=== PATIENT | female | born 1955 | race Caucasian/White ===

== ENCOUNTER → 2016-06-24 | Outpatient (CLI) | payer OTHER ==
[~2016-06-24] MED LIST: ALBUTEROL0.83 MG/ML IH; ANTIVERT 25MG25 MG PO; ATIVAN 1MG T1 MG/TAB PO; ATROVENT I0.2 MG/1 M IH; BREO IH; COMBIRESP IH; DECADRON 4MG TAB4 MG PO; DOXYCYCLINE 10100 MG PO; IPRATROPIUM BROM3 M1 IH; MEDROL 4MG DOSPA4 MG PO; PHENERGAN 25 TA25 MG PO; PREDNISONE10 MG; PREDNISONE20 MG PO; PROAIR HFA0.09 MG/AC IH; QVAR0.08 MG/AC IH; RT ADVAIR 228 DISKUS IH; SINGULAIR 110 MG/TAB PO; SPIRIVA RE2.5 MCG/Ac IH; TUDORZA IH; TUSS PO; VENTOLIN0.09 MG IH
== END ==
LOC: COL.RAD 10:11
DX: J44.9 Chronic obstructive pulmonary disease, unspecified (principal); R91.8 Other nonspecific abnormal finding of lung field
CPT/HCPCS: Q9967

== ENCOUNTER → 2016-08-12 | Outpatient (CLI) | payer OTHER | LOC: ZLAB.FHCC 13:47 → COL.LAB 13:47 | DX: J45.998 Other asthma (principal); J44.9 Chronic obstructive pulmonary disease, unspecified; R06.02 Shortness of breath ==

== ENCOUNTER → 2017-02-09 | Outpatient (CLI) | payer OTHER ==
[2017-02-09 17:04] LABS: BASO % 0.6 % (0.0-2.0); EOS # 0.2 (0.0-0.7); EOS % 5.6 % (0-4.0); GRAN % 56.4 % (42.2-75.2); LYMPH % 27.5 % (20.0-51.0); MEAN CELL VOLUME 94 fl (80.0-100.0); MEAN CORPUSCULAR HEMOGLOBIN 31 pg (27.0-31.0); MEAN CORPUSCULAR HGB CONC 33 g/dl (33.0-37.0); MEAN PLATELET VOLUME 10.1 fl (7.4-10.4); MONO # 0.3 (0.1-0.6); MONO % 9.6 % (1.7-9.3); PLATELET COUNT 158 K/mm3 (130-400); RED BLOOD COUNT 4.16 M/mm3 (4.10-5.30); REDCELL DISTRIBUTION WIDTH-CV 12.5 % (11.5-14.5); WHITE BLOOD COUNT 3.6 K/mm3 (4.8-10.8)
[2017-02-09 17:27] LABS: ADJUSTED CALCIUM 9.1 mg/dL (8.4-10.2); BILIRUBIN,TOTAL 0.7 mg/dL (0.0-1.0); CALCIUM 9.1 mg/dL (8.4-10.2); CREATININE, serum 0.82 mg/dL (0.52-1.25); TOTAL PROTEIN 6.9 gm/dL (6.4-8.2)
[2017-02-09 17:57] LABS: THYROID STIMULATING HORMONE 0.745 uIU/mL (0.465-4.680)
== END ==
LOC: COL.LAB 02-08 13:57
DX: R06.02 Shortness of breath (principal); R53.83 Other fatigue

== ENCOUNTER 2017-02-17 04:09 | Emergency (ER) | payer OTHER ==
[~2017-02-17] VITALS: Ht 152.4 cm; Wt 48.6 kg
[~2017-02-17 04:09] MED LIST changes: -ANTIVERT 25MG25 MG PO; -PREDNISONE10 MG; -TUSS PO
[2017-02-17 04:10] VITALS: TEMP 97.1
[2017-02-17] MEDS ORDERED: ANTIVERT 25MG25 MG PO (04:37)
[2017-02-17] MEDS ORDERED: DOXYCYCLINE 10100 MG PO (04:48)
[2017-02-17] MEDS ORDERED: PREDNISONE10 MG (04:50)
[2017-02-17] MEDS ORDERED: TUSS PO (05:43)
[2017-02-17 05:53] VITALS: BP 146/87; PULSE 111
== END 2017-02-17 05:55 | disposition home or self-care (01) ==
LOC: COL.ER 04:09
DX: J44.1 Chronic obstructive pulmonary disease with (acute) exacerbation (principal); R42 Dizziness and giddiness

== ENCOUNTER → 2017-06-21 | Outpatient (CLI) | payer SELFPAY ==
[~2017-06-21] MED LIST changes: +ANTIVERT 25MG25 MG PO; +MAG-OX 400400 MG/TAB PO; +PREDNISONE10 MG; +TUSS PO
== END ==
LOC: COL.RAD 14:50
DX: J98.9 Respiratory disorder, unspecified (principal); Z87.09 Personal history of other diseases of the respiratory system

== ENCOUNTER → 2017-07-19 | Outpatient (CLI) | payer SELFPAY ==
[2017-07-19 17:43] LABS: BASO % 0.3 % (0.0-2.0); EOS # 0.1 (0.0-0.7); EOS % 2.3 % (0-4.0); GRAN # 1.6 (1.4-6.5); GRAN % 53.8 % (42.2-75.2); HEMATOCRIT 40.8 % (37.0-47.0); HEMOGLOBIN 13.7 g/dl (12.5-16.0); LYMPH # 0.9 (1.2-3.4); LYMPH % 28.5 % (20.0-51.0); MEAN CELL VOLUME 94 fl (80.0-100.0); MEAN CORPUSCULAR HEMOGLOBIN 32 pg (27.0-31.0); MEAN CORPUSCULAR HGB CONC 34 g/dl (33.0-37.0); MEAN PLATELET VOLUME 9.7 fl (7.4-10.4); MONO # 0.5 (0.1-0.6); MONO % 15.1 % (1.7-9.3); PLATELET COUNT 189 K/mm3 (130-400); RED BLOOD COUNT 4.32 M/mm3 (4.10-5.30)
== END ==
LOC: COL.RAD 16:58
DX: J18.9 Pneumonia, unspecified organism (principal); J98.4 Other disorders of lung

== ENCOUNTER 2018-06-19 13:27 | Emergency (ER) | payer BC ==
[~2018-06-19] VITALS: Ht 152.4 cm; Wt 52.7 kg
[2018-06-19 13:32] VITALS: TEMP 98.4
[2018-06-19 16:58] LABS: BASO % 0.2 % (0.0-2.0); EOS # 0.1 (0.0-0.7); EOS % 2.1 % (0-4.0); GRAN # 3.9 (1.4-6.5); GRAN % 62.6 % (42.2-75.2); HEMATOCRIT 43.4 % (37.0-47.0); HEMOGLOBIN 14.4 g/dl (12.5-16.0); LYMPH # 1.5 (1.2-3.4); MEAN CELL VOLUME 96 fl (80.0-100.0); MEAN CORPUSCULAR HEMOGLOBIN 32 pg (27.0-31.0); MEAN CORPUSCULAR HGB CONC 33 g/dl (33.0-37.0); MEAN PLATELET VOLUME 9.6 fl (7.4-10.4); MONO # 0.7 (0.1-0.6); MONO % 10.8 % (1.7-9.3); PLATELET COUNT 245 K/mm3 (130-400); RED BLOOD COUNT 4.54 M/mm3 (4.10-5.30); REDCELL DISTRIBUTION WIDTH-CV 12.7 % (11.5-14.5)
[2018-06-19 17:04] LABS: PROTHROMBIN TIME 11.7 SECONDS (9.7-12.8)
[2018-06-19 17:13] LABS: ALANINE AMINOTRANSFERASE 21 U/L (9-52); ALKALINE PHOSPHATASE 71 U/L (50-136); ANION GAP 6 mmol/L (7-16); AST,SGOT 25 U/L (15-37); BILIRUBIN,TOTAL 0.7 mg/dL (0.0-1.0); BLOOD UREA NITROGEN 22 mg/dL (7-17); CALCIUM 9.2 mg/dL (8.4-10.2); CARBON DIOXIDE 31 mmol/L (22-30); CHLORIDE 104 mmol/L (98-107); GLUCOSE 104 mg/dL (74-106); POTASSIUM 3.5 mmol/L (3.4-5.0); SODIUM 141 mmol/L (137-145); TOTAL PROTEIN 7.1 gm/dL (6.4-8.2)
[2018-06-19 17:25] LABS: TROPONIN-I < 0.012 ng/mL (0.000-0.034)
[2018-06-19] MEDS ORDERED: ALBUTEROL0.83 MG/ML IH (18:13)
[2018-06-19 20:55] VITALS: BP 147/85; PULSE 96
== END 2018-06-19 20:55 | disposition short-term general hospital (02) ==
LOC: COL.ER 13:27
PROVIDERS: Emergency Medicine
DX: J44.1 Chronic obstructive pulmonary disease with (acute) exacerbation (principal); Z90.710 Acquired absence of both cervix and uterus; Z98.890 Other specified postprocedural states; Z87.891 Personal history of nicotine dependence
CPT/HCPCS: A4216; J0696; J2930; J2997; J7030

== ENCOUNTER 2018-07-12 07:11 | Outpatient (CLI) | payer BC ==
[~2018-07-12] VITALS: Ht 152.4 cm; Wt 55.2 kg
[2018-07-12] VITALS (17 sets, daily range): BP systolic 110–172; BP diastolic 75–114; PULSE 76–93
[~2018-07-12 07:11] MED LIST changes: +ASPIRIN 32325 MG/TAB PO; +DALIRESP500 MCG PO; +LIPITOR 40MG TA40 MG PO; +NEUTROGENA T/G132 M1; +TRELEGY ELLIPT1 EACH IH; +XANAX .25M0.25 MG/TA PO
--- NOTE | 2018-07-12 08:45 | NUR ---
pt to ct per ambulation. Placed on ct table in prone position. O2 on at 2l/nc. Monitors applied.
--- NOTE | 2018-07-12 09:15 | NUR ---
Specimen obtained by Dr Fields and placed in formalin. Specimen labeled.
--- NOTE | 2018-07-12 11:33 | NUR ---
Discharge instructions given to pt.Pt verbalizes understanding.INT removed,catheter tip intact.Pt escortedout via wheelchair by this nurse.
== END 2018-07-12 11:35 | disposition home or self-care (01) ==
LOC: COL.RAD 07:11
DX: R91.1 Solitary pulmonary nodule (principal)
CPT/HCPCS: J2250; J3010

== ENCOUNTER → 2018-08-15 | Outpatient (CLI) | payer BC | LOC: COL.PUL 12:57 | DX: J44.9 Chronic obstructive pulmonary disease, unspecified (principal) ==

== ENCOUNTER → 2018-09-15 | Outpatient (CLI) | payer BC ==
[2018-09-15 07:38] LABS: ARTERIAL BLD GAS O2 SATURATION 95.6 % (92-100); ARTERIAL BLD GAS TCO2 CT 23.9; ARTERIAL BLOOD GAS BASE EXCESS -1.7 (-2-2); ARTERIAL BLOOD GAS HCO3 22.7 meq/L (22-26); ARTERIAL BLOOD GAS PCO2 37.8 mmHg (35-45); ARTERIAL BLOOD GAS PO2 80.1 mmHg (80-100)
== END ==
LOC: COL.PUL 07:04
PROVIDERS: Internal Medicine Pulmonary Disease
DX: J44.9 Chronic obstructive pulmonary disease, unspecified (principal)

== ENCOUNTER → 2018-10-02 | Outpatient (CLI) | payer BC | LOC: COL.PUL 07:16 | DX: J44.9 Chronic obstructive pulmonary disease, unspecified (principal); Z87.891 Personal history of nicotine dependence ==

== ENCOUNTER 2019-01-09 08:37 | Day surgery (SDC) | payer BC ==
[~2019-01-09] VITALS: Ht 152.5 cm; Wt 58.1 kg
[2019-01-09] VITALS (11 sets, daily range): BP systolic 99–150; BP diastolic 64–91; PULSE 64–83; TEMP 97.7
[2019-01-09] MEDS ORDERED: ZYRTEC 10MG10 MG PO (09:39)
[2019-01-09] MEDS ORDERED: LASIX 20MG TABL20 MG PO (09:40)
[2019-01-09 09:42] LABS: HEMATOCRIT 37.7 % (37.0-47.0); HEMOGLOBIN 12.4 g/dl (12.5-16.0); MEAN CELL VOLUME 95 fl (80.0-100.0); MEAN CORPUSCULAR HEMOGLOBIN 31 pg (27.0-31.0); MEAN CORPUSCULAR HGB CONC 33 g/dl (33.0-37.0); MEAN PLATELET VOLUME 10.2 fl (7.4-10.4); PLATELET COUNT 192 K/mm3 (130-400); RED BLOOD COUNT 3.97 M/mm3 (4.10-5.30); REDCELL DISTRIBUTION WIDTH-CV 12.1 % (11.5-14.5)
[2019-01-09] MEDS ORDERED: XOPENEX HF0.045 MG/A IH (09:42)
[2019-01-09] MEDS ORDERED: TOPROL XL 25MG25 MG PO (09:43)
[2019-01-09] MEDS ORDERED: PROAIR HFA0.09 MG/AC IH (09:43)
[2019-01-09 09:47] LABS: PROTHROMBIN TIME 11.1 SECONDS (9.7-12.8)
[2019-01-09 09:52] LABS: CALCIUM 9.4 mg/dL (8.4-10.2); CREATININE, serum 1.05 (0.52-1.25); POTASSIUM 3.7 mmol/L (3.4-5.0)
--- NOTE | 2019-01-09 10:44 | NUR ---
ALL MEDICATIONS GIVEN VORB WITH MD. SEE MERGE FOR ALL MEDICATION ADMIN TIMES. SEE MERGE FOR ALL RASS ASSESSMENTS DURING AND POST PROCEDURE.
[2019-01-09] MEDS ORDERED: CARDIZEM CD 18180 MG PO (12:01)
--- NOTE | 2019-01-09 12:13 | NUR ---
Patient transported to room 11 at this time. Patient hooked back up to monitoring equipment, VS stable. Patient denies pain at this time. Bedside report given to CLAUDIA Echols. Visualized right groin site with RN. Site is clean, dry, and intact. No oozing or hematoma noted at this time. Site is soft and nontender. Post tib pulses +1 bilaterally, pedal pulses +2 bilaterally. Discussed importance of bedrest and keeping head down, leg flat with patient and family at bedside. All questions and concerns addressed. Call light within reach, bed in locked and lowest position.
--- NOTE | 2019-01-09 12:15 | NUR ---
PT TO EU 11 VIA BED FROM SIGN PAINTER APPRENTICE. PT IS AWAKE, WITH PT, CALL LIGHT IN REACH. REVIEWED BED REST ACTIVITY WITH PT, STATES WOULD LIKE TO SLEEP
--- NOTE | 2019-01-09 13:00 | NUR ---
PT DECLINES FLUIDS AT THIS TIME, STATES SITE IS VERY SORE, DOZES IN BED
--- NOTE | 2019-01-09 14:00 | NUR ---
pt on bedpan, unable to go at this time, takes sips of water
--- NOTE | 2019-01-09 15:00 | NUR ---
reviewed discharge inst. with pt and friend, reviewed activity, precautions, new RX to clam picker and d'cd metoprolol per , with verbal understanding. Appt given to pt also
--- NOTE | 2019-01-09 16:00 | NUR ---
pt had to urinate and have BM, sat on side of bed, walked to toilet, tolerated well, site unchanged, pt was able to void and had BM, up in room now, no c/o IV d'cd intact, pt dressed.
--- NOTE | 2019-01-09 16:29 | NUR ---
pt discharged via w/c to car, has all education and discharge inst. with her
== END 2019-01-09 16:30 | disposition home or self-care (01) ==
LOC: COL.CAR 08:37
PROVIDERS: Internal Medicine Cardiovascular Disease
DX: I20.9 Angina pectoris, unspecified (principal); I34.2 Nonrheumatic mitral (valve) stenosis; I00 Rheumatic fever without heart involvement; F41.9 Anxiety disorder, unspecified; I47.1 Supraventricular tachycardia; J44.1 Chronic obstructive pulmonary disease with (acute) exacerbation; Z86.73 Personal history of transient ischemic attack (TIA), and cerebral infarction without residual deficits; Z90.710 Acquired absence of both cervix and uterus; Z79.82 Long term (current) use of aspirin; Z79.51 Long term (current) use of inhaled steroids; Z87.891 Personal history of nicotine dependence
CPT/HCPCS: C1760; C1769; C1894; J1644; J2250; J3010; Q9967

== ENCOUNTER 2019-01-09 17:04 | Emergency (ER) | payer BC ==
[~2019-01-09] VITALS: Ht 152.4 cm; Wt 57.7 kg
[~2019-01-09 17:04] MED LIST changes: +CARDIZEM CD 18180 MG PO; +LASIX 20MG TABL20 MG PO; +TOPROL XL 25MG25 MG PO; +XOPENEX HF0.045 MG/A IH; +ZYRTEC 10MG10 MG PO
[2019-01-09 17:13] VITALS: TEMP 96
[2019-01-09 17:47] LABS: BASO % 0.2 % (0.0-2.0); EOS # 0.2 (0.0-0.7); EOS % 2.6 % (0-4.0); GRAN # 4.7 (1.4-6.5); GRAN % 71.7 % (42.2-75.2); HEMOGLOBIN 11.5 g/dl (12.5-16.0); LYMPH % 14.9 % (20.0-51.0); MEAN CELL VOLUME 96 fl (80.0-100.0); MEAN CORPUSCULAR HEMOGLOBIN 31 pg (27.0-31.0); MEAN CORPUSCULAR HGB CONC 33 g/dl (33.0-37.0); MONO # 0.7 (0.1-0.6); MONO % 10.4 % (1.7-9.3); PLATELET COUNT 186 K/mm3 (130-400); RED BLOOD COUNT 3.68 M/mm3 (4.10-5.30); REDCELL DISTRIBUTION WIDTH-CV 12.1 % (11.5-14.5)
[2019-01-09 17:52] LABS: HEMATOCRIT 35.2 % (37.0-47.0)
[2019-01-09 17:57] LABS: ALBUMIN 3.3 gm/dL (3.5-5.0); BILIRUBIN,TOTAL 0.5 mg/dL (0.0-1.0); CALCIUM 8.4 mg/dL (8.4-10.2)
[2019-01-09 18:15] LABS: TROPONIN-I 0.04 ng/mL (0.000-0.035)
[2019-01-09 21:00] VITALS: BP 113/72; PULSE 88
== END 2019-01-09 21:02 | disposition home or self-care (01) ==
LOC: COL.ER 17:04
PROVIDERS: Emergency Medicine
DX: I95.1 Orthostatic hypotension (principal); J44.9 Chronic obstructive pulmonary disease, unspecified; Z86.73 Personal history of transient ischemic attack (TIA), and cerebral infarction without residual deficits; Z87.891 Personal history of nicotine dependence
CPT/HCPCS: J2405

== ENCOUNTER 2020-04-26 20:41 | Inpatient (IN) | payer MEDICARE, BC ==
[~2020-04-26] VITALS: Ht 152.4 cm; Wt 55.7 kg
[2020-04-26 21:39] LABS: EOS % 0.1 % (0-4.0); GRAN # 6.9 (1.4-6.5); GRAN % 84.7 % (42.2-75.2); HEMATOCRIT 40.1 % (37.0-47.0); HEMOGLOBIN 13.2 g/dl (12.5-16.0); LYMPH # 0.6 (1.2-3.4); LYMPH % 6.9 % (20.0-51.0); MEAN CELL VOLUME 95 fl (80.0-100.0); MEAN CORPUSCULAR HEMOGLOBIN 31 pg (27.0-31.0); MEAN CORPUSCULAR HGB CONC 33 g/dl (33.0-37.0); MEAN PLATELET VOLUME 10.1 fl (7.4-10.4); MONO # 0.7 (0.1-0.6); MONO % 8.1 % (1.7-9.3); PLATELET COUNT 235 K/mm3 (130-400); RED BLOOD COUNT 4.22 M/mm3 (4.10-5.30); REDCELL DISTRIBUTION WIDTH-CV 13.7 % (11.5-14.5)
[2020-04-26 21:50] LABS: ALANINE AMINOTRANSFERASE 18 U/L (4-34); ALBUMIN 4.3 gm/dL (3.5-5.0); ALKALINE PHOSPHATASE 102 U/L (50-136); ANION GAP 9 mmol/L (7-16); AST,SGOT 27 U/L (15-37); BILIRUBIN,TOTAL 0.3 mg/dL (0.0-1.0); BLOOD UREA NITROGEN 20 mg/dL (7-17); C-REACTIVE PROTEIN 1.1 mg/dL (0.0-0.9); CALCIUM 9.2 mg/dL (8.4-10.2); CARBON DIOXIDE 27 mmol/L (22-30); CHLORIDE 104 mmol/L (98-107); CREATININE, serum 0.93 (0.52-1.25); GLUCOSE 121 mg/dL (74-106); POTASSIUM 4.2 mmol/L (3.4-5.0); SODIUM 141 mmol/L (137-145); TOTAL PROTEIN 7.5 gm/dL (6.4-8.2)
[2020-04-26] MEDS ORDERED: LOMOTIL 0.025 M1 TAB PO (21:50)
[2020-04-26] MEDS ORDERED: DALIRESP500 MCG PO (21:51)
[2020-04-26] MEDS ORDERED: TRELEGY ELLIPT1 EACH IH (21:52)
[2020-04-26] MEDS ORDERED: CARDIZEM CD 24240 MG PO (21:53)
[2020-04-26] MEDS ORDERED: LASIX 20MG TABL20 MG PO (21:54)
[2020-04-26] MEDS ORDERED: SINGULAIR 110 MG/TAB PO (21:54)
[2020-04-26] MEDS ORDERED: PEPCID 20MG TAB20 MG PO (21:55)
[2020-04-26] MEDS ORDERED: LIPITOR 40MG TA40 MG PO (21:56)
[2020-04-26] MEDS ORDERED: PREDNISONE20 MG PO (21:57)
[2020-04-26] MEDS ORDERED: ASPIRIN 32325 MG/TAB PO (21:58)
[2020-04-26 21:59] LABS: TROPONIN-I < 0.012 ng/mL (0.000-0.035)
[2020-04-26] MEDS ORDERED: ALBUTEROL0.83 MG/ML IH (21:59)
[2020-04-26] MEDS ORDERED: ATROVENT I0.2 MG/1 M IH (22:00)
[2020-04-26] MEDS ORDERED: BONINE25 MG PO (22:01)
[2020-04-26] MEDS ORDERED: PHARMASSURE ZIN50 MG PO (22:03)
[2020-04-26] MEDS ORDERED: D3-5050000 IU PO (22:04)
[2020-04-26] MEDS ORDERED: VITAMINC500CH (22:04)
[2020-04-27] VITALS (7 sets, daily range): BP systolic 95–147; BP diastolic 57–91; PULSE 67–101; TEMP 96.9–98.1
--- NOTE | 2020-04-27 01:29 | NUR ---
PT A/O X3, IN BED WITH HOB ELEVATED TO 60 DEGREES, DENIES PAIN OR DISCOMFORT. HAS O2 ON AT 2L/NC HOME DOSE AT [facility]. PT WAS BROUGHT FROM [facility] [place] VIA PRIVATE VEHICLE ACCOMPANIED BY PT'S BOYFRIEND. PT ADVISES THAT SHE FELT FINE THE DAY BEFORE BUT FELT REALLY SICK ON 04/26 AND THROUGH SHE SHOULD COME HERE BECAUSE SHE IS A PT OF DR. MORENO PULMONALOGIST. PT HAS NO NEEDS AT THIS TIME AND HAS CALL LIGHT WITHIN REACH.
--- NOTE | 2020-04-27 02:36 | NUR ---
PT IN ROOM WITH HOB ELEVATED AND RESTING. NO C/O PAIN OR DISCOMFORT, AND NO NEEDS AT THIS TIME. CALL LIGHT WITHIN REACH.
--- NOTE | 2020-04-27 07:25 | NUR ---
PT HAD NO ISSUES DURING THE NIGHT, CALL LIGHT WITHIN REACH.
--- NOTE | 2020-04-27 10:05 | NUR ---
PATIENT SHIFT ASSESSMENT COMPLETE. AM MEDICATIONS GIVEN. PATIENT REPORTS CHEST DISCOMFORT AND TIGHTNESS WITH WORSENING COUGH, AND IS REQUESTING COUGH MEDICATION. CALL LIGHT WITHIN REACH. O2 IN PLACE. TACHYCARDIA NOTED, OTHERWISE VSS. NOTIFIED OF COUGH AND PATIENT WANTING COUGH MEDICATION. ROBITUSSIN AC 10 MG PO Q4H PRN VERBAL ORDER REPEAT BACK FROM TO THIS NURSE.
--- NOTE | 2020-04-27 12:16 | NUR ---
PATIENT REPORTING PAIN A 4/10 IN THE CHEST AND DESCRIBES IT TIGHTNESS. PATIENT GIVEN PRN COUGH MEDICATION AND MECLIZINE AT THIS TIME. PATIENT WAS UP IN THE ROOM WITHOUT HER OXYGEN ON WHEN THIS NURSE ENTERED THE ROOM. PATIENT EDUCATED ON THE IMPORTANCE OF KEEPING HER OXYGEN ON AT ALL TIMES, ESPECIALLY WITH AMBULATION. LABORED BREATHING NOTED. VITAL SIGNS OBTAINED AT THIS TIME. IV TO INT PER ORDERS. CALL LIGHT WITHIN REACH. WILL CONTINUE TO MONITOR.
--- NOTE | 2020-04-27 14:43 | NUR ---
SW attempted to contact patient at room number independently, and with assistance of medical staff, and by her personal number [phone]. There was no answer at any of the numbers.
--- NOTE | 2020-04-27 19:00 | NUR ---
PATIENTS CHEST TIGHTNESS WELL CONTROLLED WITH ROBITUSSIN AND PATIENT WAS ABLE TO GET SOME REST THIS AFTERNOON. WILL REPORT OFF TO ONCOMING NURSE.
--- NOTE | 2020-04-27 20:00 | NUR ---
Assessment complete. Patient complains of pain in her chest, due to excessive coughing. Robitussin administered by day shift nurse. She is tolerating 2 liters of 02 well. Gait is steady as she walks to the restroom. No new concerns, will continue to monitor.
[2020-04-28 04:00] VITALS: BP 158/92; PULSE 98; TEMP 96.4
--- NOTE | 2020-04-28 04:52 | NUR ---
Patient has had a restful, uneventful night. No new concerns, will continue to monitor.
[2020-04-28 09:00] VITALS: BP 150/92; PULSE 92; TEMP 96.7
[2020-04-28 10:01] LABS: BASO % 0.1 % (0.0-2.0); GRAN # 7.3 (1.4-6.5); GRAN % 84.5 % (42.2-75.2); HEMATOCRIT 39.6 % (37.0-47.0); HEMOGLOBIN 13.1 g/dl (12.5-16.0); LYMPH # 0.7 (1.2-3.4); LYMPH % 7.9 % (20.0-51.0); MEAN CELL VOLUME 94 fl (80.0-100.0); MEAN CORPUSCULAR HEMOGLOBIN 31 pg (27.0-31.0); MEAN CORPUSCULAR HGB CONC 33 g/dl (33.0-37.0); MEAN PLATELET VOLUME 11.1 fl (7.4-10.4); MONO # 0.6 (0.1-0.6); MONO % 7.2 % (1.7-9.3); PLATELET COUNT 234 K/mm3 (130-400); RED BLOOD COUNT 4.22 M/mm3 (4.10-5.30); REDCELL DISTRIBUTION WIDTH-CV 13.4 % (11.5-14.5)
[2020-04-28 10:20] LABS: CALCIUM 9.2 mg/dL (8.4-10.2); CREATININE, serum 0.9 (0.52-1.25); MAGNESIUM 2.1 mg/dL (1.6-2.3); POTASSIUM 3.8 mmol/L (3.4-5.0)
--- NOTE | 2020-04-28 12:45 | NUR ---
Patient alert and oriented. denies any pain. complain of frequest soft formed bowel movement. RN received phone order for Imodium 4mg PO once from Dr Nair, administerred to patient. Patient have intermittent cough. Patient request her Cardizem restarted, information related to Dr Nair. ambulate okay in the room.
[2020-04-28 13:25] VITALS: BP 152/88; PULSE 95
[2020-04-28 16:03] VITALS: BP 142/92; PULSE 85; TEMP 97.8
--- NOTE | 2020-04-28 16:48 | NUR ---
Mechanical Field Engineer contacted patient's significant other, Heriberto (ph#[phone]) to discuss discharge planning. Heriberto advised that he and patient don't normally live together, they have their own separate apartments, however since they both are COVID positive, patient has been staying with him. Patient sees Dr. Parker for primary care and Dr. Chirinos for pulmonology. Patient lives in [place], [place]. Patient has home oxygen but Heriberto could not remember what company she gets it from. Heriberto states patient mostly wears it at night or when she is walking. Patient is not and has two children, Cat (ph#[phone]) and Jf. Jf advised the plan would likely be that patient will return to his apartment upon discharge. SW then contacted patient by phone. Patient confirmed the above information and advised she would likely return home with Heriberto. Patient states she may be interested in the Home Health agency, "[facility]" which she states her brother uses. SW contacted [facility] out of [place] and they advised they do not cover [place]. PAM will follow up with patient on her options.
--- NOTE | 2020-04-28 18:19 | NUR ---
Patient alert and oriented, requires 2L O2, Dyspnea on exertion. patient report diarrhea overnight. Gave patient imodium 4mg, patient report diarrhea stopped post imodium administration. Patient had a repeated chest xray today (result on file). Patient cardizem 240mg restarted today. Called Dr Santos, Infectious disease. patient resting in bed at this time. decline any concern or question at this time. .
[2020-04-28 19:57] VITALS: BP 124/67; PULSE 89; TEMP 97
--- NOTE | 2020-04-28 20:30 | NUR ---
Initial shift assessment done- denies pain, states has not has loose stools since immodium was given this morning. VSS, o2 at 2L/nc, denies SOB, sats 95-96%
--- NOTE | 2020-04-28 23:15 | NUR ---
Pt did have a soft brown stool,states feels like she has to go again- would like immodium at this time-- stool sent down to lab for testing-
[2020-04-29] VITALS: BP 142/51; PULSE 82; TEMP 97.1
[2020-04-29 04:00] VITALS: BP 115/53; PULSE 83; TEMP 97.3
--- NOTE | 2020-04-29 05:46 | NUR ---
Quiet night- o2 at 2L/nc with sats 98%, afebrile all shift, did have 2 small soft\loose stools-did get immodium per pts requests - no stools since.
[2020-04-29 09:16] VITALS: BP 118/58; PULSE 79; TEMP 98.1
[2020-04-29 09:23] LABS: BASO % 0.1 % (0.0-2.0); GRAN # 7.4 (1.4-6.5); GRAN % 83.2 % (42.2-75.2); HEMATOCRIT 36.2 % (37.0-47.0); HEMOGLOBIN 11.9 g/dl (12.5-16.0); LYMPH # 0.7 (1.2-3.4); LYMPH % 7.8 % (20.0-51.0); MEAN CELL VOLUME 93 fl (80.0-100.0); MEAN CORPUSCULAR HEMOGLOBIN 31 pg (27.0-31.0); MEAN CORPUSCULAR HGB CONC 33 g/dl (33.0-37.0); MEAN PLATELET VOLUME 11.1 fl (7.4-10.4); MONO # 0.8 (0.1-0.6); MONO % 8.6 % (1.7-9.3); PLATELET COUNT 211 K/mm3 (130-400); REDCELL DISTRIBUTION WIDTH-CV 13.3 % (11.5-14.5)
[2020-04-29] MEDS ORDERED: ROBITUSSIN COU PO (11:25)
[2020-04-29] MEDS ORDERED: DECADRON6 MG PO (11:26)
[2020-04-29] MEDS ORDERED: DOXYCYCLINE 10100 MG PO (11:26)
--- NOTE | 2020-04-29 12:02 | NUR ---
Dr Womack here to see patient.
--- NOTE | 2020-04-29 13:41 | NUR ---
Convalescent Sitter contacted patient to review discharge plan. SW reviewed Home Health options with patient and she selected [facility] from Medicare.gov list of HH options that serve [place]. PAM contacted Latoya at [facility] and faxed referral. Patient is ready to be discharged today. PAM contacted Latoya again and faxed discharge orders and instructions. PAM ensured that Latoya has patient's phone number and the address to [facility] [email or web address], which is where patient will be staying for a short time upon discharge. No additional needs at this time.
--- NOTE | 2020-04-29 14:10 | NUR ---
Discharge instructions reviewed with patient, verbalized understanding. Home meds returned from pharmacy. Discharged via wheelchair to auto/home with family at 1414.
== END 2020-04-29 14:14 | disposition home or self-care (01) | DRG 177 ==
LOC: COL.ER 20:41 → MEDICAL 22:26
PROVIDERS: Emergency Medicine; Internal Medicine; ADMIT Hospitalist
DX: U07.1 COVID-19 (principal); J12.89 Other viral pneumonia; J44.1 Chronic obstructive pulmonary disease with (acute) exacerbation; K21.9 Gastro-esophageal reflux disease without esophagitis; I10 Essential (primary) hypertension; E78.5 Hyperlipidemia, unspecified; R19.7 Diarrhea, unspecified; I27.20 Pulmonary hypertension, unspecified; Z87.891 Personal history of nicotine dependence
CPT/HCPCS: OP; 99232-AI; 99239; G0378; J0696; J1100; J1650; J7030; J8540